=== PATIENT | female | born 1985 | race African-American/Black ===

== ENCOUNTER 2020-04-22 14:19 | Outpatient (CLI) | payer OTHER, SELFPAY ==
--- NOTE | ~2020-04-22 | US_ITS ---
EXAMINATION: US OB <= 14 weeks fetus EXAM DATE: 04/22/2020 14:46 INDICATION: Encounter for supervision of normal , dating. 1st trimester. TECHNIQUE: Pelvic obstetrical transabdominal sonogram was performed by a technologist. There are mu ltiple grayscale and Doppler images available for interpretation. There are no earlier studies of th is gestation for comparison. FINDINGS: Uterus measures 11.5 x 5.4 x 7.0 cm. There is intrauterine gestation sac. pole with heart rate confirmed at 169 beats per minute. The 2.4 cm crown-rump length corresponds to estimated gestational age by ultrasound of 9 weeks 1 day, estimated date of confinement 11/24/2020. Yolk sac i s identified. There is no sonographic evidence of subchorionic hemorrhage. Right ovary measures 2 .6 x 2.1 x 1.8 cm, the left is not identified. IMPRESSION: Live intrauterine gestation, age by ultrasound 9 weeks 1 day Reviewed, dictated and finalized at location A. ING ALLEY MANAGER
== END 2020-04-22 14:20 | disposition home or self-care (01) ==
PROVIDERS: PCP Obstetrics & Gynecology; Visit Provider Obstetrics & Gynecology
DX: Z34.91 Encounter for supervision of normal pregnancy, unspecified, first trimester (principal); Z3A.09 9 weeks gestation of pregnancy
CPT/HCPCS: 76801

== ENCOUNTER 2020-06-09 11:39 | Outpatient (CLI) | payer OTHER, SELFPAY ==
--- NOTE | ~2020-06-09 | US_ITS ---
EXAMINATION: US OB follow up DATE: 06/09/2020 12:11 INDICATION: Encounter for supervision of normal during second trimester of TECHNIQUE: Real-time ultrasound of the pelvis was performed. The interpreting radiologist was not pre sent for the study. COMPARISON: 04/22/2020 FINDINGS: There is a single living fetus in transverse lie with head to maternal right. The placenta is posteri or. heart rate is 144 beats per minute (bpm). The amniotic fluid volume is subjectively normal. The following biometric data were obtained: BPD: 3.5 cm -> 16 weeks 5 days Head circumference: 12.7 cm -> 16 weeks 3 days Abdominal circumference: 12.0 cm -> 17 weeks 5 days Femur length: 2.0 cm -> 16 weeks 0 days Head circumference to abdominal circumference ratio: 1.06 (normal range 1.07-1.30). Estimated weight: 171 g (+/-) 26 g. or 6 oz. (+/-) 1 oz. IMPRESSION: 1. Single living fetus in transverse lie with heart rate of 144 bpm. 2. Estimated weight is 79th percentile by Hadlock criteria when 11/22/2020 is used as the estima jackeline date of delivery (JASVIR). Please correlate with clinical information or earlier ultrasounds for mos t accurate JASVIR. 3. Head circumference to abdominal circumference ratio of 1.06 which is slightly below the normal ran ge (1.07-1.30). Reviewed, dictated and finalized at location A. YST IMPRESSION: 1. Single living fetus in transverse lie with heart rate of 144 bpm. 2. Estimated weight is 79th percentile by Hadlock criteria when 11/22/2020 is used as the estimated date of delivery (JASVIR). Please correlate with clinica l information or earlier ultrasounds for most accurate JASVIR. 3. Head circumference to abdominal circumference ratio of 1.06 which is slightl y below the normal range (1.07-1.30).
== END 2020-06-09 11:40 | disposition home or self-care (01) ==
LOC: ANHIMG 11:43
PROVIDERS: PCP Obstetrics & Gynecology; Visit Provider Obstetrics & Gynecology
DX: Z34.90 Encounter for supervision of normal pregnancy, unspecified, unspecified trimester (principal); Z3A.00 Weeks of gestation of pregnancy not specified
CPT/HCPCS: 76816

== ENCOUNTER 2020-08-14 08:35 | Emergency (ER) | payer MEDICAID, SELFPAY ==
[2020-08-14 08:39] VITALS: BP 124/78; PULSE 87; RESP 20; TEMP 36.1; O2SAT 97
[2020-08-14 09:09] VITALS: BP 115/74; BP 116/69; PULSE 92; PULSE 94
[2020-08-14 09:10] VITALS: BP 117/77; PULSE 95
[2020-08-14 09:12] LABS: Basophils Absolute Auto 0.1 K/mm3 (0.0-0.1); Basophils Percent Auto 0.4 % (0.2-1.2); Eosinophils Absolute Auto 0.1 K/mm3 (0-0.3); Hematocrit 31.6 % (37.0-47.0); Hemoglobin 10.9 g/dL (12.0-15.0); Immature Granulocyte Percent A 0.8 % (0-0.5); Lymphocytes Absolute Auto 2.45 K/mm3 (0.9-3.2); Lymphocytes Percent Auto 19.5 % (18.3-44.2); Mean Corpuscular HGB Conc 34.5 g/dl (32-36); Mean Corpuscular Hemoglobin 28.8 pg (26-34); Mean Corpuscular Volume 83.4 fl (80-100); Mean Platelet Volume 10.2 fl (7.4-10.4); Monocytes Absolute Auto 0.9 K/mm3 (0.1-0.6); Monocytes Percent Auto 6.9 % (2.6-8.5); Neutrophils Percent Auto 71.4 % (45.5-73.1); Platelet Count Result 277 k/mm3 (150-375); Red Blood Count 3.79 M/mm3 (4.2-5.4); Red Cell Distribution Width 12.1 % (11.5-14.5); White Blood Count 12.6 K/mm3 (4.5-10.0)
--- NOTE | 2020-08-14 09:13 | PC.NURSE ---
When doing orthostatics pt c/o cramping like contractions , to lower abdomen and lower back. States he feels like he's coming down . Dr. Kat aware. OB contacted and will be enroute to monitor patient for contractions.
[2020-08-14 09:20] LABS: Alanine Aminotransferase 13 U/L (4-35); Albumin Level 3.7 g/dL (3.5-5.1); Alkaline Phosphatase 69 U/L (38-126); Anion Gap 5 mmol/L (8-16); Aspartate Amino Transferase 28 U/L (14-36); Bilirubin,Total 0.3 mg/dL (0.2-1.3); Blood Urea Nitrogen 5 mg/dL (7-17); Carbon Dioxide 25 mmol/L (22-30); Chloride 105 mmol/L (98-107); Estimated CRCL calculation 114 ml/min; Estimated Glomerular Filt Rate > 60; Glucose 118 mg/dL (65-105); Lipase 46 U/L (23-300); Potassium 4.2 mmol/L (3.4-5.0); Sodium 135 mmol/L (137-145)
--- NOTE | 2020-08-14 09:20 | PC.NURSE ---
OB here for evaluation.
--- NOTE | 2020-08-14 09:23 | PC.NURSE ---
Pt ambulatory to br to stool and to attempt urine collection.
[2020-08-14 09:43] LABS: Add Urine Microscopic? YES; Appearance Urine Cloudy (Clear); Bacteria Urine Trace /hpf; Bilirubin Urine Negative (Negative); Blood Urine 1+ (Negative); Color Urine Yellow (Yellow); Glucose Urine UA Negative (Negative); Ketones Urine Negative (Negative); Leukocyte Esterase Ur Negative LEU/UL (Negative); Nitrate Urine Negative (Negative); Protein Urine Negative (Negative); RBC Urine 0-2 /hpf (0-2); Specific Grav Ur 1.006 (1.001-1.035); Squamous Epithelial Cell Urine Few /hpf (Few); Urobilinogen Urine Negative mg/dL (<2.0); WBC Urine 0-3 /hpf
--- NOTE | 2020-08-14 10:05 | PC.NURSE ---
Per Natalie from OB, pt is not having contractions, but is irritable. Pt states since OB has arrived she hasn't had anymore cramping. Dr. Kat made aware.
--- NOTE | 2020-08-14 10:18 | ED.GENADULT ---
HPI - General Adult General Chief complaint: Nausea/Vomiting/Diarrhea Stated complaint: diarrhea x 3 days Time Seen by Provider: 08/14/20 10:05 Source: patient Mode of arrival: ambulatory Limitations: no limitations History of Present Illness HPI narrative: Patient presents for evaluation of diarrhea. She indicates she has experienced diarrhea for the last 3 days. She developed some cramping in the lower abdomen. Today she experienced some nausea without vomiting. No fever, chills, urinary symptoms, vaginal bleeding or discharge. She is currently , 26 weeks gestation. G5, P2. She has had a confirmed IUP per ultrasound during this . PIPING MANAGER is Dr. Ramos. She was recently babysitting her niece, but also had diarrhea. Several other family members did not as well. She states that her niece has a GI bug . She states she has some generalized weakness which she attributes to frequent diarrhea. Related Data Allergies Allergy/AdvReac Type Severity Reaction Status Date / Time No Known Allergies Allergy Verified 08/14/20 08:47 Review of Systems Review of Systems: Narrative: CONSTITUTIONAL: Denies fever, chills, or sweats. EYES: Denies visual changes, redness, or discharge. ENT: Denies rhinorrhea, congestion, sore throat, or otalgia. CARDIOVASCULAR: Denies chest pain, palpitations, or edema. RESPIRATORY: Denies cough or dyspnea. GASTROINTESTINAL: Reports abdominal cramping and diarrhea. Denies nausea and vomiting. GENITOURINARY: Denies dysuria or hematuria. SKIN: Denies rash or itching. MUSCULOSKELETAL: Denies back pain, joint pain, or myalgia. NEUROLOGIC: Denies headache, numbness, dizziness, or weakness. PSYCHIATRIC: Denies anxiety or depression. [facility] Past Medical History Medical History (Updated 08/14/20 @ 13:57 by HECTOR Camacho, SANTY) Asthma Hypertension Surgical History Surgical History History of cholecystectomy Family History Family History Mother Epilepsy Diabetes mellitus Social History Social History (Updated 08/14/20 @ 10:23 by HECTOR Camacho, ) Smoking status: Never smoker Substance use: never Living arrangements: with family Gender identity (if verbalized by the patient): Female Sexual Orientation (if Verbalized by the Patient): Straight or Heterosexual Spiritual care concerns: No Exam Narrative: Exam Narrative: GENERAL: Well-appearing, well-nourished, and in no acute distress. HEAD: Normocephalic, atraumatic. EYES: PERRLA and EOMI. ENT: Nares clear, no rhinorrhea or epistaxis. Mucous membranes moist. Oropharynx without tonsillar hypertrophy exudate or other lesions. Bilateral TMs pearly cochran nonbulging NECK: Supple. No adenopathy or masses. No carotid bruits or JVD CHEST: Clear to auscultation. No respiratory distress. No wheezes rales or rhonchi HEART: Regular rate and rhythm. No murmur heard. Normal peripheral pulses. ABDOMEN: Soft, nontender, normal active bowel sounds. Gravid uterus EXTREMITIES: Normal range of motion. No edema. SKIN: Warm, dry, no rash. NEURO: No focal deficits. Alert and oriented x3. PSYCH: Normal mood and affect. Course Course Emergency Course: This is a 35-year-old female currently , 26 weeks gestation who presented with diarrhea with associated abdominal cramping. Labs were fairly benign. She had no vaginal bleeding. PIPING MANAGER nurse came to the department and monitored heart tones. She indicated patient was not having contractions. Patient was hydrated in the emergency department and given Benadryl. Her symptoms improved. She states she feels well to go home. She was advised to follow-up with her OBGYN this coming week. She already has appt scheduled three days from now. She was advised to return for vaginal bleeding and any worsening symptoms Vital Signs Vital signs: Vit
[2020-08-14] MEDS: LACTATED RINGERS 1,000 ML 999 ML IV CONT (10:22)
--- NOTE | 2020-08-14 10:29 | PC.NURSE ---
1015--Called to the ED to monitor pt. She is a L2 with EDC of 11/22/2020, 25.6 weeks gestation. She came in with reports of diarrhea since 08/10/20 and c/o abdominal cramping worried that she is having ctxns. EFM X2 applied. Abdomen soft and non-tender upon palpation, pt. reports movement and denies leaking and vaginal bleeding. EFM from [id number] with fhr 145, moderate variability, 10X10 accels noted, no decels noted. Uterine monitor shows some uterine irritability 20-30 sec and mild to palpation. Findings reported to Dr. Ramos, pt. cleared obstetrically at this time.
[2020-08-14] MEDS: diphenhydrAMINE HCl INJ 50 MG/ML VIAL 25 MG IV PUSH (10:34)
--- NOTE | 2020-08-14 11:16 | P.PNOB_ITS ---
OB - Triage/Final Diagnosis Visit Information Date of evaluation: 08/14/20 Reason for evaluation: other (Diarrhea and dehydration) Comments/Additional reasons for admission: I have assessed the risk for this patient, Ilia Mullen, and determined that she would benefit from observation care. Evaluation Baseline heart rate: 144 monitor accelerations: Present monitor decelerations: None Laboratory results: Laboratory Tests 08/14/20 08/14/20 08/14/20 09:04 09:04 09:32 WBC 12.6 H RBC 3.79 L Hgb 10.9 L Hct 31.6 L MCV 83.4 MCH 28.8 MCHC 34.5 RDW 12.1 Plt Count 277 MPV 10.2 Immature Gran % (Auto) 0.8 H Neut % (Auto) 71.4 Lymph % (Auto) 19.5 Charles % (Auto) 6.9 Eos % (Auto) 1.0 Baso % (Auto) 0.4 Lymph # (Auto) 2.45 Charles # (Auto) 0.9 H Eos # (Auto) 0.1 Baso # (Auto) 0.1 Abs Immat Gran (auto) 0.10 H Absolute Neuts (auto) 9.0 H Absolute Nucleated RBC 0.0 Nucleated RBC % 0.0 Sodium 135 L Potassium 4.2 Chloride 105 Carbon Dioxide 25 Anion Gap 5 L BUN 5 L Creatinine 0.60 L Estim Creat Clear Calc 114 Estimated GFR > 60 Glucose 118 H Calcium 9.0 Total Bilirubin 0.3 AST 28 ALT 13 Alkaline Phosphatase 69 Total Protein 7.0 Albumin 3.7 Lipase 46 Urine Color Yellow Urine Appearance Cloudy H Urine pH 7.0 Ur Specific [place] 1.006 Urine Protein Negative Urine Glucose (UA) Negative Urine Ketones Negative Ur Blood (Man) 1+ H Urine Nitrate Negative Urine Bilirubin Negative Urine Urobilinogen Negative Leukocyte Esterase Rfl Negative Urine RBC 0-2 Urine WBC 0-3 Ur Squamous Epith Cells Few Urine Bacteria Trace Vital signs: Vital Signs - 24 hr 08/14/20 08:39 08/14/20 09:09 08/14/20 09:10 Temperature 97.0 F L Pulse Rate 87 94 95 Respiratory Rate 20 Blood Pressure 124/78 115/74 117/77 Pulse Oximetry 97 Final Diagnosis (1) Diarrhea: Code(s): R19.7 - Diarrhea, unspecified Status: Acute (2) Supervision of normal intrauterine in multigravida in second trimester: Code(s): Z34.82 - Encounter for supervision of other normal , second trimester Status: Acute
--- NOTE | 2020-08-14 12:05 | PC.NURSE ---
Pt given boxed lunch to eat. States abdominal cramping is gone.
--- NOTE | 2020-08-14 12:56 | PC.NURSE ---
Pt drowsy after eating, but awakens easily. States is feeling better. To BR x1 for stool earlier but states has no abdominal cramping at this time.
[2020-08-14 14:15] VITALS: BP 122/88; PULSE 80; RESP 20; O2SAT 99
== END 2020-08-14 14:17 | disposition home or self-care (01) ==
PROVIDERS: Emergency Medicine; Emergency Provider Nurse Practitioner
DX: O21.2 Late vomiting of pregnancy (principal); R19.7 Diarrhea, unspecified; O99.512 Diseases of the respiratory system complicating pregnancy, second trimester; J45.909 Unspecified asthma, uncomplicated; Z3A.26 26 weeks gestation of pregnancy
CPT/HCPCS: 36415; 80053; 81001; 83690; 85025; 87804; 96361; 96374; 99284; J1200; J7120

== ENCOUNTER 2020-10-05 10:33 | Observation (INO) | payer OTHER, SELFPAY ==
[2020-10-05 11:17] VITALS: BP 118/77; PULSE 82
[2020-10-05] MEDS: NIFEdipine 30 MG TAB.ER.24 PO (11:51)
[2020-10-05] MEDS: LACTATED RINGERS 1,000 ML 999 ML IV CONT ×2 (11:52→13:00)
[2020-10-05 11:58] LABS: Add Urine Microscopic? YES; Appearance Urine Cloudy (Clear); Bacteria Urine Trace /hpf; Bilirubin Urine Negative (Negative); Blood Urine 1+ (Negative); Color Urine Yellow (Yellow); Glucose Urine UA Negative (Negative); Ketones Urine Negative (Negative); Leukocyte Esterase Ur 3+ LEU/UL (Negative); Nitrate Urine Negative (Negative); Protein Urine Negative (Negative); RBC Urine 0-2 /hpf (0-2); Specific Grav Ur 1.008 (1.001-1.035); Squamous Epithelial Cell Urine Moderate /hpf (Few); Urobilinogen Urine Negative mg/dL (<2.0); WBC Urine 0-3 /hpf
[2020-10-05 12:00] VITALS: BP 119/77; PULSE 83
[2020-10-05 13:00] VITALS: BP 128/76; PULSE 85
--- NOTE | 2020-10-07 06:04 | PM.OBTRLD ---
OB - Triage/Final Diagnosis Visit Information Comments/Additional reasons for admission: I have assessed the risk for this patient, Ilia Mullen, and determined that she would benefit from observation care. Evaluation Laboratory results: Laboratory Tests 10/05/20 11:44 Urine Color Yellow Urine Appearance Cloudy H Urine pH 7.0 Ur Specific [place] 1.008 Urine Protein Negative Urine Glucose (UA) Negative Urine Ketones Negative Ur Blood (Man) 1+ H Urine Nitrate Negative Urine Bilirubin Negative Urine Urobilinogen Negative Leukocyte Esterase Rfl 3+ H Urine RBC 0-2 Urine WBC 0-3 Ur Squamous Epith Cells Moderate H Urine Bacteria Trace Final Diagnosis (1) labor in third trimester without delivery: Code(s): O60.03 - labor without delivery, third trimester Status: Acute (2) History of section: Code(s): Z98.891 - History of uterine scar from previous surgery Status: Acute (3) History of stillbirth: Code(s): Z87.59 - Personal history of other complications of , childbirth and the puerperium Status: Acute (4) History of pre-eclampsia in prior , currently in third trimester: Code(s): O09.293 - Supervision of with other poor reproductive or obstetric history, third trimester Status: Acute (5) GDM, class A2: Code(s): O24.419 - Gestational diabetes mellitus in , unspecified control Status: Acute (6) Chronic hypertension during : Code(s): O10.919 - Unspecified pre-existing hypertension complicating , unspecified trimester Status: Acute (7) High risk due to history of previous obstetrical problem: Code(s): O09.299 - Supervision of with other poor reproductive or obstetric history, unspecified trimester Status: Acute (8) contractions: Code(s): O47.9 - False labor, unspecified Status: Acute
== END 2020-10-05 14:45 | disposition home or self-care (01) ==
PROVIDERS: Admitting Provider Obstetrics & Gynecology; Visit Provider Obstetrics & Gynecology
DX: O47.03 False labor before 37 completed weeks of gestation, third trimester (principal); O24.419 Gestational diabetes mellitus in pregnancy, unspecified control; O10.913 Unspecified pre-existing hypertension complicating pregnancy, third trimester; Z3A.33 33 weeks gestation of pregnancy
CPT/HCPCS: 81001; 96360; 96361; A9270; G0378; G0379; J7120

== ENCOUNTER 2020-10-08 10:13 | Outpatient (RCR) | payer OTHER, SELFPAY ==
[2020-10-08 11:20] VITALS: BP 104/69; PULSE 92
== END 2021-01-06 23:59 | disposition home or self-care (01) ==
LOC: ANHOBOP 10:13
PROVIDERS: Visit Provider Obstetrics & Gynecology
DX: O24.419 Gestational diabetes mellitus in pregnancy, unspecified control (principal); O40.3XX0 Polyhydramnios, third trimester, not applicable or unspecified; O26.23 Pregnancy care for patient with recurrent pregnancy loss, third trimester; Z3A.33 33 weeks gestation of pregnancy
CPT/HCPCS: 59025

== ENCOUNTER 2021-10-22 19:38 | Emergency (ER) | payer OTHER, SELFPAY ==
[2021-10-22] VITALS (11 sets, daily range): BP systolic 110–132; BP diastolic 66–93; PULSE 59–99; RESP 13–25; TEMP 36.6; O2SAT 98–100
--- NOTE | ~2021-10-22 | XR_ITS ---
EXAMINATION: XR chest 2V 10/22/2021 20:22 INDICATION: Sternal chest pain PROCEDURE: 2 view chest COMPARISON: No prior studies for comparison. FINDINGS: The lungs are clear. The cardiomediastinal silhouette is within normal limits. There are no pleural effusions. There is no pneumothorax suspected. IMPRESSION: 1: NO ACUTE CARDIOPULMONARY DISEASE. Reviewed, dictated and finalized at location A.
--- NOTE | 2021-10-22 19:58 | ECG_ITS ---
Measurements Intervals [place] Rate: 70 P: 39 TN: 148 QRS: 25 QRSD: 81 T: -10 QT: 364 QTc: 394 Interpretive Statements SINUS RHYTHM WITH SINUS ARRHYTHMIA BORDERLINE ST-T WAVE ABNORMALITY- ANTEROLAT/INF LEADS BASELINE ARTIFACT- I, III, V6 BORDERLINE ECG Electronically Signed On 10-22-2021 21:25:44 CDT by Narendra Neely D.O.
--- NOTE | 2021-10-22 20:02 | ED.CHESTPAIN ---
HPI - Chest Pain General Chief Complaint: Chest Pain Stated Complaint: chest pain, headache Time Seen by Provider: 10/22/21 19:49 Source: patient History of Present Illness HPI narrative: Patient presents with multiple complaints that been intermittent over the past 1 to 2 weeks. She reports she has had left-sided chest pain worse with deep inspiration no radiation achy and again intermittent. She has seen her nut culler and she is scheduled for stress test and echo in November. Patient also reports feels like her heart rate is too low it has been in the 50s. She doctor nut culler and they have been adjusting her medications which are from diltiazem to metoprolol. Also reports intermittent dizziness over the time and headaches. Headache is described as a pressure sensation currently on her right side. Denies any focal numbness or weakness she denies any changes in vision denies any recent hospitalizations or surgeries denies prior history of blood clot she denies estrogen therapies. Related Data Home Medications Medication Instructions Recorded Confirmed aspirin 81 mg tablet,delayed 81 mg PO BID 10/05/20 10/08/20 release calcium carbonate 600 mg-vitamin 1 tablet PO DAILY PRN Acid Reflux 10/05/20 10/08/20 D3 10 mcg (400 unit) tablet escitalopram oxalate 10 mg tablet 10 mg PO DAILY 10/05/20 10/08/20 lisinopril 10 mg tablet tablet 10/22/21 metoprolol tartrate 25 mg tablet tablet 10/22/21 Allergies Allergy/AdvReac Type Severity Reaction Status Date / Time No Known Allergies Allergy Verified 10/22/21 20:05 Review of Systems Review of Systems: CONSTITUTIONAL: Denies fever, chills, or sweats. EYES: Denies visual changes, redness, or discharge. ENT: Denies rhinorrhea, congestion, sore throat, or otalgia. CARDIOVASCULAR: Denies palpitations, or edema. RESPIRATORY: Denies cough or dyspnea. GASTROINTESTINAL: Denies abdominal pain, nausea, vomiting, or diarrhea. GENITOURINARY: Denies dysuria or hematuria. SKIN: Denies rash or itching. MUSCULOSKELETAL: Denies back pain, joint pain, or myalgia. NEUROLOGIC: Denies numbness, dizziness, or weakness. PSYCHIATRIC: Denies anxiety or depression. All systems reviewed & are unremarkable except as noted in HPI and below PMFSH Past Medical History Medical History Asthma Chronic hypertension during GDM, class A2 Hemorrhagic shock High risk due to history of previous obstetrical problem History of placenta abruption History of stillbirth Hypertension Surgical History Surgical History History of section History of cholecystectomy Family History Family History Mother Epilepsy Diabetes mellitus Social History Social History Smoking status: Never smoker Substance use: never Gender identity (if verbalized by the patient): Female Sexual Orientation (if Verbalized by the Patient): Straight or Heterosexual Spiritual care concerns: No Exam Narrative: GENERAL: Well-appearing, well-nourished, and in no acute distress. HEAD: Normocephalic, atraumatic. EYES: PERRLA and EOMI. ENT: Nares clear, no rhinorrhea or epistaxis. Mucous membranes moist. NECK: Supple. No masses. No JVD CHEST: Clear to auscultation. No respiratory distress. No wheezes rales or rhonchi HEART: Regular rate and rhythm. No murmur heard. Normal peripheral pulses. ABDOMEN: Soft, nontender, nondistended EXTREMITIES: Normal range of motion. No edema. SKIN: Warm, dry, no rash. NEURO: No focal deficits. Alert and oriented x3. PSYCH: Normal mood and affect. Course Reevaluation(s) Reevaluation #1: Patient resting comfortably reports feeling improved results and plan reviewed with patient patient is comfortable with the outpatient plan Date: 10/22/21
[2021-10-22 20:19] LABS: Basophils Percent Auto 0.6 % (0.2-1.2); Eosinophils Absolute Auto 0.1 K/mm3 (0-0.3); Eosinophils Percent Auto 0.9 % (0-4.4); Hematocrit 37.7 % (37.0-47.0); Hemoglobin 13.1 g/dL (12.0-15.0); Immature Granulocyte Absolute 0.01 K/mm3 (0.00-0.031); Immature Granulocyte Percent A 0.1 % (0-0.5); Lymphocytes Absolute Auto 3.47 K/mm3 (0.9-3.2); Mean Corpuscular HGB Conc 34.7 g/dl (32-36); Mean Corpuscular Hemoglobin 27.2 pg (26-34); Mean Corpuscular Volume 78.2 fl (80-100); Mean Platelet Volume 9.8 fl (7.4-10.4); Monocytes Absolute Auto 0.5 K/mm3 (0.1-0.6); Monocytes Percent Auto 7.1 % (2.6-8.5); Neutrophils Absolute Auto 2.9 K/mm3 (1.3-6.7); Neutrophils Percent Auto 41.3 % (45.5-73.1); Platelet Count Result 358 k/mm3 (150-375); Red Blood Count 4.82 M/mm3 (4.2-5.4); Red Cell Distribution Width 12.5 % (11.5-14.5); White Blood Count 6.9 K/mm3 (4.5-10.0)
--- NOTE | 2021-10-22 20:19 | PC.NURSE ---
Patient taken to Xray.
[2021-10-22 20:22] LABS: Appearance Urine Clear (Clear); Bilirubin Urine Negative (Negative); Blood Urine Trace-lysed (Negative); Color Urine Yellow (Yellow); Glucose Urine UA Negative (Negative); Ketones Urine Negative (Negative); Leukocyte Esterase Ur Trace LEU/UL (Negative); Nitrate Urine Negative (Negative); Protein Urine Negative (Negative); Urobilinogen Urine 0.2 mg/dL (<2.0); pH Urine 6.5 (5.0-9.0)
[2021-10-22] MEDS: KETOROLAC 15 MG/ML VIAL (*BKC) IV PUSH (20:26)
[2021-10-22] MEDS: SODIUM CHLORIDE 0.9% IV 1,000 ML 999 ML IV CONT (20:26)
[2021-10-22 20:30] LABS: Alanine Aminotransferase 12 U/L (6-35); Albumin Level 4.7 g/dL (3.5-5.1); Alkaline Phosphatase 67 U/L (38-126); Anion Gap 8 mmol/L (8-16); Aspartate Amino Transferase 23 U/L (14-36); Bilirubin,Total 0.7 mg/dL (0.2-1.3); Blood Urea Nitrogen 9 mg/dL (7-17); Calcium 9.3 mg/dL (8.4-10.2); Carbon Dioxide 28 mmol/L (22-30); Chloride 105 mmol/L (98-107); Estimated CRCL calculation 84 ml/min; Estimated Glomerular Filt Rate > 60; Glucose 111 mg/dL (65-110); Potassium 3.6 mmol/L (3.4-5.0); Sodium 141 mmol/L (137-145)
[2021-10-22 20:38] LABS: Add Urine Microscopic? YES; Bacteria Urine Trace /hpf; Mucus Urine Rare /lpf; RBC Urine 0-2 /hpf (0-2); Squamous Epithelial Cell Urine Many /hpf (Few); WBC Urine 0-3 /hpf
[2021-10-22 20:44] LABS: Troponin I < 0.012 ng/mL (0.000-0.034)
--- NOTE | 2021-10-22 21:05 | PC.NURSE ---
Patient ambulated to the bathroom with a even steady gait. Patient states her chest pain and headache are getting better with the pain meds.
== END 2021-10-22 21:30 | disposition home or self-care (01) ==
PROVIDERS: Emergency Provider Emergency Medicine
DX: R07.9 Chest pain, unspecified (principal); R51.9 Headache, unspecified; J45.909 Unspecified asthma, uncomplicated; I10 Essential (primary) hypertension; Z79.82 Long term (current) use of aspirin; R94.31 Abnormal electrocardiogram [ECG] [EKG]
CPT/HCPCS: 36415; 71046; 80053; 81001; 81025; 84484; 85025; 93005; 96361; 96374; 96375; 99284; J0131; J1885; J7030

== ENCOUNTER 2021-12-26 15:27 | Emergency (ER) | payer OTHER, SELFPAY ==
[2021-12-26 15:35] VITALS: BP 121/74; PULSE 107; RESP 16; TEMP 36.3; O2SAT 96
--- NOTE | 2021-12-26 16:36 | ED.URI ---
HPI - URI/Sore Throat General Chief Complaint: Upper Respiratory Infection Stated Complaint: Cold symptoms Time Seen by Provider: 12/26/21 15:52 History of Present Illness HPI Narrative: 36-year-old female presents to the emergency room for evaluation of sinus congestion, postnasal drip, productive cough, sneezing and rhinorrhea. Patient states his symptoms been present for 3 days. Has not taken any medications for symptoms. Is accompanied by her 3 children, who are all experiencing similar symptoms. Denies fever, chest pain, shortness of breath, ear pain. Related Data Home Medications Medication Instructions Recorded Confirmed aspirin 81 mg tablet,delayed 81 mg PO BID 10/05/20 10/08/20 release calcium carbonate 600 mg-vitamin 1 tablet PO DAILY PRN Acid Reflux 10/05/20 10/08/20 D3 10 mcg (400 unit) tablet escitalopram oxalate 10 mg tablet 10 mg PO DAILY 10/05/20 10/08/20 lisinopril 10 mg tablet tablet 10/22/21 metoprolol tartrate 25 mg tablet tablet 10/22/21 Allergies Allergy/AdvReac Type Severity Reaction Status Date / Time No Known Allergies Allergy Verified 10/22/21 20:05 Review of Systems Review of Systems: CONSTITUTIONAL: Denies fever, chills, or sweats. EYES: Denies visual changes, redness, or discharge. ENT: Reports rhinorrhea, congestion, sore throat, or otalgia. CARDIOVASCULAR: Denies chest pain, palpitations, or edema. RESPIRATORY: Reports cough GASTROINTESTINAL: Denies abdominal pain, nausea, vomiting, or diarrhea. GENITOURINARY: Denies dysuria or hematuria. SKIN: Denies rash or itching. MUSCULOSKELETAL: Denies back pain, joint pain, or myalgia. NEUROLOGIC: Denies headache, numbness, dizziness, or weakness. PSYCHIATRIC: Denies anxiety or depression. [facility] Past Medical History Medical History Asthma Chronic hypertension during GDM, class A2 Hemorrhagic shock High risk due to history of previous obstetrical problem History of placenta abruption History of stillbirth Hypertension Surgical History Surgical History History of section History of cholecystectomy Family History Family History Mother Epilepsy Diabetes mellitus Social History Social History Smoking status: Never smoker Substance use: never Gender identity (if verbalized by the patient): Female Sexual Orientation (if Verbalized by the Patient): Straight or Heterosexual Spiritual care concerns: No Exam Narrative: GENERAL: Well-appearing, well-nourished, no physical limitations, and in no acute distress. HEAD: Normocephalic, atraumatic. EYES: Conjunctivae normal, PERRLA and EOMI. ENT: External nose normal, Nares clear, clear rhinorrhea. Mucous membranes moist. Oropharynx without tonsillar hypertrophy exudate or other lesions. External ears normal, bilateral TMs normal bilaterally NECK: Supple. No adenopathy or masses. CHEST: Clear to auscultation. No respiratory distress. No wheezes rales or rhonchi. No tenderness. HEART: Regular rate and rhythm. No murmur heard. Normal peripheral pulses. EXTREMITIES: Normal range of motion. No edema. No clubbing or cyanosis SKIN: Warm, dry, no rash. No noted wounds NEURO: No focal deficits. Alert and oriented x3. MAEW. CN's II-XI intact bilaterally, normal gait PSYCH: Cooperative. Normal mood and affect. Course Vital Signs Vital signs: Vital Signs Temperature 36.3 C L 12/26/21 15:35 Pulse Rate 107 H 12/26/21 15:35 Respiratory Rate 16 12/26/21 15:35 Blood Pressure 121/74 12/26/21 15:35 Pulse Oximetry 96 12/26/21 15:35 Oxygen Delivery Room Air 12/26/21 15:35 Temperature 36.3 C L 12/26/21 15:35 Pulse Rate 107 H 12/26/21 15:35 Respiratory Rate 16 12/26/21 15:35 Blood Pressure 121/74
[2021-12-26 16:55] LABS: SARS-CoV-2 RNA PCR Negative
== END 2021-12-26 17:39 | disposition home or self-care (01) ==
PROVIDERS: Emergency Provider Nurse Practitioner Family
DX: J06.9 Acute upper respiratory infection, unspecified (principal); I10 Essential (primary) hypertension; Z20.822 Contact with and (suspected) exposure to COVID-19; Z79.82 Long term (current) use of aspirin
CPT/HCPCS: 96372; 99283; C9803; J1100; U0003; U0005

== ENCOUNTER 2022-06-25 23:16 | Emergency (ER) | payer OTHER, SELFPAY ==
--- NOTE | ~2022-06-25 | XR_ITS ---
Clinical Indication: Chest pressure PA and lateral views of the chest: Comparison: 10/22/2021 Findings: The lungs are clear, without evidence of focal consolidation or pleural effusion. Cardiome diastinal silhouette is within normal limits. Bones and soft tissues are unremarkable. Impression: Normal chest. Reviewed, dictated and finalized at [facility]. Impression: Normal chest.
[2022-06-25 23:23] VITALS: BP 143/85; PULSE 113; RESP 16; TEMP 36.6; O2SAT 100
--- NOTE | 2022-06-25 23:33 | ECG_ITS ---
Measurements Intervals [place] Rate: 119 P: 71 MA: 140 QRS: 62 QRSD: 78 T: 24 QT: 339 QTc: 477 Interpretive Statements SINUS TACHYCARDIA POSSIBLE LEFT ATRIAL ENLARGEMENT NONSPECIFIC T-WAVE ABNORMALITY- ANT/INF LEADS ABNORMAL ECG COMPARED TO ECG 10/22/2021 20:01:33 SINUS TACHYCARDIA NOW PRESENT Electronically Signed On 06-26-2022 0:49:13 CDT by Narendra Neely D.O.
[2022-06-26 03:11] LABS: Basophils Percent Auto 0.3 % (0.2-1.2); Hematocrit 36.2 % (37.0-47.0); Hemoglobin 12.7 g/dL (12.0-15.0); Immature Granulocyte Absolute 0.03 K/mm3 (0.00-0.031); Immature Granulocyte Percent A 0.3 % (0-0.5); Lymphocytes Absolute Auto 1.87 K/mm3 (0.9-3.2); Lymphocytes Percent Auto 21.4 % (18.3-44.2); Mean Corpuscular HGB Conc 35.1 g/dl (32-36); Mean Corpuscular Hemoglobin 27.8 pg (26-34); Mean Corpuscular Volume 79.2 fl (80-100); Mean Platelet Volume 9.8 fl (7.4-10.4); Monocytes Absolute Auto 0.5 K/mm3 (0.1-0.6); Monocytes Percent Auto 5.8 % (2.6-8.5); Neutrophils Absolute Auto 6.3 K/mm3 (1.3-6.7); Neutrophils Percent Auto 72.2 % (45.5-73.1); Platelet Count Result 331 k/mm3 (150-375); Red Blood Count 4.57 M/mm3 (4.2-5.4); Red Cell Distribution Width 12.5 % (11.5-14.5); White Blood Count 8.8 K/mm3 (4.5-10.0)
[2022-06-26 03:22] LABS: Alanine Aminotransferase 21 U/L (6-35); Albumin Level 4.7 g/dL (3.5-5.1); Alkaline Phosphatase 80 U/L (38-126); Anion Gap 10 mmol/L (8-16); Aspartate Amino Transferase 26 U/L (14-36); Bilirubin,Total 0.4 mg/dL (0.2-1.3); Blood Urea Nitrogen 12 mg/dL (7-17); Calcium 9.2 mg/dL (8.4-10.2); Carbon Dioxide 23 mmol/L (22-30); Chloride 107 mmol/L (98-107); Estimated CRCL calculation 109 ml/min; Estimated Glomerular Filt Rate > 60; Glucose 231 mg/dL (65-110); Potassium 4.3 mmol/L (3.4-5.0); Sodium 140 mmol/L (137-145)
[2022-06-26 03:30] VITALS: BP 127/89; PULSE 88; RESP 19; O2SAT 100
[2022-06-26 03:59] LABS: Influenza A QL RT-PCR Negative (Negative); Influenza B QL RT-PCR Negative (Negative); RSV RNA, RT-PCR Negative (Negative); SARS-CoV-2 RNA PCR Negative
[2022-06-26] MEDS: IPRATROPIUM BR 0.02% INH SOLN 0.5 MG/2.5 ML VIAL INHALATION (04:21)
[2022-06-26] MEDS: ALBUTEROL SULFATE NEB 2.5 MG/3 ML INH INHALATION (04:21)
[2022-06-26 04:22] VITALS: PULSE 86; RESP 20
--- NOTE | 2022-06-26 04:29 | ED.GENADULT ---
HPI - General Adult General Chief complaint: Shortness of Breath/Dyspnea Stated complaint: sob, high heart rate Time Seen by Provider: 06/26/22 03:56 History of Present Illness HPI narrative: Of shortness of breath and fast heart rate. Patient reports that she had bronchitis and was seen in urgent care started on steroids and antibiotic and given Tessalon Perles. Patient states that this evening she was running out of her albuterol and reports that she is felt short of breath as if she could not get a good deep breath and was concerned that she may have pneumonia or COVID. Patient reports no fever reports no significant chest pain patient does report that she is able to complete complete full sentences and reports has never been intubated before in the past. Related Data Home Medications Medication Instructions Recorded Confirmed aspirin 81 mg tablet,delayed 81 mg PO BID 10/05/20 10/08/20 release calcium carbonate 600 mg-vitamin 1 tablet PO DAILY PRN Acid Reflux 10/05/20 10/08/20 D3 10 mcg (400 unit) tablet escitalopram oxalate 10 mg tablet 10 mg PO DAILY 10/05/20 10/08/20 lisinopril 10 mg tablet tablet 10/22/21 metoprolol tartrate 25 mg tablet tablet 10/22/21 Allergies Allergy/AdvReac Type Severity Reaction Status Date / Time No Known Allergies Allergy Verified 06/25/22 23:16 Review of Systems Review of Systems: A 10 system review of systems was completed on the patient and is negative except for what is stated in the HPI. Nursing and ancillary documentation was reviewed. [facility] Past Medical History Medical History Asthma Chronic hypertension during GDM, class A2 Hemorrhagic shock High risk due to history of previous obstetrical problem History of placenta abruption History of stillbirth Hypertension Surgical History Surgical History History of section History of cholecystectomy Family History Family History Mother Epilepsy Diabetes mellitus Social History Social History Smoking status: Never smoker Substance use: never Living arrangements: with family Gender identity (if verbalized by the patient): Female Sexual Orientation (if Verbalized by the Patient): Straight or Heterosexual Spiritual care concerns: No Course Course Emergency Course: GENERAL: Well-appearing, well-nourished, and in no acute distress. HEAD: Normocephalic, atraumatic. EYES: PERRLA and EOMI. ENT: Nares clear, no rhinorrhea or epistaxis. Mucous membranes moist. NECK: Supple. CHEST: Clear to auscultation. No respiratory distress. HEART: Regular rate and rhythm. No murmur heard. Normal peripheral pulses. ABDOMEN: Soft, nontender, nondistended, normal active bowel sounds. EXTREMITIES: Normal range of motion. No edema. SKIN: Warm, dry, no rash. NEURO: No focal deficits. Alert and oriented x3. PSYCH: Normal mood and affect. Vital Signs Vital signs: Vital Signs Temperature 36.6 C 06/25/22 23:23 Pulse Rate 113 H 06/25/22 23:23 Respiratory Rate 16 06/25/22 23:23 Blood Pressure 143/85 H 06/25/22 23:23 Pulse Oximetry 100 06/25/22 23:23 Oxygen Delivery Room Air 06/25/22 23:23 Temperature 36.6 C 06/25/22 23:23 Pulse Rate 86 06/26/22 04:22 Respiratory Rate 20 06/26/22 04:22 Blood Pressure 127/89 06/26/22 03:30 Pulse Oximetry 100 06/26/22 03:30 Oxygen Delivery Room Air 06/26/22 03:30 Medical Decision Making MDM Narrative Medical decision making narrative: Differential diagnosis includes pneumonia, COVID, influenza EKG shows sinus tachycardia with a rate of [address] elevation or ST depression Chest x-ray shows no focal infiltrate CBC and CMP showed no acute abnormalities COVID a
[2022-06-26 04:31] VITALS: PULSE 81; RESP 20
[2022-06-26 04:45] VITALS: BP 123/74; PULSE 80; RESP 19; O2SAT 97
== END 2022-06-26 04:45 | disposition home or self-care (01) ==
PROVIDERS: Emergency Provider Emergency Medicine; PCP Physician Assistant
DX: J45.909 Unspecified asthma, uncomplicated (principal); Z20.822 Contact with and (suspected) exposure to COVID-19; I10 Essential (primary) hypertension; Z79.82 Long term (current) use of aspirin; R00.0 Tachycardia, unspecified; R94.31 Abnormal electrocardiogram [ECG] [EKG]
CPT/HCPCS: 36415; 71046; 80053; 85025; 87637; 93005; 94640; 99284